=== PATIENT | female | born 1980 | race Two or more races ===

== ENCOUNTER 2018-09-11 08:48 | Outpatient (CLI) | payer SELFPAY ==
[~2018-09-11] VITALS: Ht 170.2 cm; Wt 91.5 kg
[2018-09-11 08:52] VITALS: BP 99/50; Ht 170.2 cm; Wt 91.5 kg
--- NOTE | 2018-09-11 13:19 | PN ---
Triage Information Date/Time Reason for visit: Vag spotting / bleeding (After having intercourse) Weeks of Gestation 24 weeks and 5 days /Para -0-0-3 Diabetes: none Hypertention: none Objective Vital Signs Date Temp Pulse Resp B/P (MAP) Pulse Ox O2 O2 Flow FiO2 Time Delivery Rate 09/11/18 98.6 99/50 (66) 08:52 Heart Rate: 140's Contractions: None Results/Medications Result Diagram: 09/11/18 0900 Results 24 hrs Laboratory Tests Test 09/11/18 09:00 White Blood Count 7.0 Red Blood Count 3.65 L Hemoglobin 10.9 L Hematocrit 33.0 L Mean Corpuscular Volume 90.4 Mean Corpuscular Hemoglobin 29.9 Mean Corpuscular Hemoglobin Concent 33.0 Red Cell Distribution Width 13.3 Platelet Count 189 Mean Platelet Volume 12.0 H Immature Granulocytes % 0.400 Neutrophils % 71.4 Lymphocytes % 22.6 Monocytes % 4.4 Eosinophils % 0.9 Basophils % 0.3 Nucleated Red Blood Cells % 0.0 Immature Granulocytes # 0.030 Neutrophils # 5.0 Lymphocytes # 1.6 Monocytes # 0.3 Eosinophils # 0.1 Basophils # 0.0 Nucleated Red Blood Cells # 0.0 Imaging Results PROCEDURE: Obstetric ultrasound CLINICAL INDICATION: Pain , bleeding TECHNIQUE: Multiple transverse and longitudinal grayscale images of the pelvis were obtained transabdominally and transvaginally.. COMPARISON: None FINDINGS: The cervix is closed with a length of 4.1 cm. There is a single live intrauterine gestation. Cardiac activity is present with 146 beats per minute. There is a vertex presentation. The placenta is anterior. There is no evidence for an abruption or placenta pre via. RPTAT: AA IMPRESSION: Cervix length measures 4.1 cm. Normal anterior placenta. .Timmy Bass MD, Date Time Electronically viewed and signed by .Timmy Bass MD, on 09/11/2018 09:54 .S/ Disposition: Discharge Assessment/Plan 38 years old -0-0-3 with a single intrauterine at 24 weeks and 5 days complaining of vaginal bleeding after having sex. She states that currently has no further bleeding. She states good movement. She denies nausea, vomiting, shortness of breath, chest pain, headache, visual changes, or LOF. -FHR: No sign of metabolic acidosis- Category I -Contractions: None -Ultrasound performed: Normal VINOD, cervical length of 4.1. No evidence of placental abruption or placenta previa. -Symptoms and sign of labor, preeclampsia, kick count discussed wi th patient, she voiced understanding. All of her questions answered. -Patient was discharged home in stable condition with the appropriate discharge instructions provided. I would like patient to have close follow-up with her primary physician or outpatient clinic in 1-2 days or return to triage for vaginal bleeding or any other urgent concerns. ALEXIA OQUENDO Sep 11, 2018 13:19
== END 2018-09-11 12:08 | disposition home or self-care (01) ==
LOC: L-D 08:48 → OBT 08:48
PROVIDERS: ATTEND Obstetrics & Gynecology
DX: O46.8X2 Other antepartum hemorrhage, second trimester (principal); Z3A.24 24 weeks gestation of pregnancy
CPT/HCPCS: 76815; 76817; 85025; 86850; 86900; 86901; G0463